=== PATIENT | male | born 1990 | race Two or more races ===

== ENCOUNTER 2021-04-03 13:20 | Outpatient (CLI) | payer MEDICARE, OTHER ==
[2021-04-03] MEDS ORDERED: BACI/NEOM/POLY B OINT PKT 1 UDPKT PACKET ONE (13:50)
== END 2021-04-03 23:59 | disposition home or self-care (01) ==
LOC: WOU 13:20
PROVIDERS: ATTEND Surgery
DX: T81.31XA Disruption of external operation (surgical) wound, not elsewhere classified, initial encounter (principal); T86.821 Skin graft (allograft) (autograft) failure; G82.20 Paraplegia, unspecified; M62.50 Muscle wasting and atrophy, not elsewhere classified, unspecified site
CPT/HCPCS: 11043

== ENCOUNTER 2022-02-19 11:30 | Outpatient (CLI) | payer MEDICARE, OTHER ==
[2022-02-19] MEDS ORDERED: COLLAGENASE 5 GM TUBE UD TP ONE (11:47)
== END 2022-02-19 23:59 | disposition home or self-care (01) ==
LOC: WOU 11:30
PROVIDERS: ATTEND Surgery
DX: L89.314 Pressure ulcer of right buttock, stage 4 (principal); L89.224 Pressure ulcer of left hip, stage 4; G82.20 Paraplegia, unspecified; M62.50 Muscle wasting and atrophy, not elsewhere classified, unspecified site; E46 Unspecified protein-calorie malnutrition; Z68.1 Body mass index [BMI] 19.9 or less, adult; F41.9 Anxiety disorder, unspecified; Z96.82 Presence of neurostimulator
CPT/HCPCS: 11043

== ENCOUNTER 2022-02-23 11:23 | Outpatient (CLI) | payer MEDICARE, OTHER ==
[2022-02-23] MEDS ORDERED: COLLAGENASE 5 GM TUBE UD TP ONE (11:26)
== END 2022-02-23 23:59 | disposition home or self-care (01) ==
LOC: WOU 11:23
PROVIDERS: ATTEND Surgery
DX: L89.314 Pressure ulcer of right buttock, stage 4 (principal); L89.224 Pressure ulcer of left hip, stage 4; G82.20 Paraplegia, unspecified; M62.50 Muscle wasting and atrophy, not elsewhere classified, unspecified site; E46 Unspecified protein-calorie malnutrition; Z68.1 Body mass index [BMI] 19.9 or less, adult; F41.9 Anxiety disorder, unspecified; Z96.82 Presence of neurostimulator
CPT/HCPCS: G0463

== ENCOUNTER 2022-02-26 13:00 | Outpatient (CLI) | payer MEDICARE, OTHER ==
[2022-02-26] MEDS ORDERED: LIDOCAINE 2%-EPI 1:100,000 30 ML VIAL ONE (13:17)
== END 2022-02-26 23:59 | disposition home or self-care (01) ==
LOC: WOU 13:00
PROVIDERS: ATTEND Surgery
DX: L89.314 Pressure ulcer of right buttock, stage 4 (principal); L89.224 Pressure ulcer of left hip, stage 4; G82.20 Paraplegia, unspecified; M62.50 Muscle wasting and atrophy, not elsewhere classified, unspecified site; F41.9 Anxiety disorder, unspecified; E46 Unspecified protein-calorie malnutrition; Z68.1 Body mass index [BMI] 19.9 or less, adult; Z96.82 Presence of neurostimulator
CPT/HCPCS: 11043; 11046; J3490

== ENCOUNTER 2022-04-02 13:25 | Outpatient (CLI) | payer MEDICARE, OTHER ==
[2022-04-02] MEDS ORDERED: COLLAGENASE 5 GM TUBE UD TP ONE (13:43)
== END 2022-04-02 23:59 | disposition home or self-care (01) ==
LOC: WOU 13:25
PROVIDERS: ATTEND Surgery
DX: L89.224 Pressure ulcer of left hip, stage 4 (principal); L89.314 Pressure ulcer of right buttock, stage 4; M62.50 Muscle wasting and atrophy, not elsewhere classified, unspecified site; G82.20 Paraplegia, unspecified
CPT/HCPCS: 11043

== ENCOUNTER 2022-04-09 13:08 | Outpatient (CLI) | payer MEDICARE, OTHER ==
[2022-04-09] MEDS ORDERED: COLLAGENASE 5 GM TUBE UD TP ONE (13:22)
== END 2022-04-09 23:59 | disposition home or self-care (01) ==
LOC: WOU 13:08
PROVIDERS: ATTEND Surgery
DX: L89.314 Pressure ulcer of right buttock, stage 4 (principal); L89.224 Pressure ulcer of left hip, stage 4; G82.20 Paraplegia, unspecified; M62.50 Muscle wasting and atrophy, not elsewhere classified, unspecified site; Z87.891 Personal history of nicotine dependence
CPT/HCPCS: 11043

== ENCOUNTER 2022-04-23 14:24 | Outpatient (CLI) | payer MEDICARE, OTHER ==
[~2022-04-23 14:24] MED LIST: COLLAGENASE 5 GM TUBE UD TP ONE
== END 2022-04-23 23:59 | disposition home or self-care (01) ==
LOC: WOU 14:24
PROVIDERS: ATTEND Surgery
DX: L89.314 Pressure ulcer of right buttock, stage 4 (principal); L89.224 Pressure ulcer of left hip, stage 4; G82.20 Paraplegia, unspecified; M62.50 Muscle wasting and atrophy, not elsewhere classified, unspecified site; E46 Unspecified protein-calorie malnutrition; Z68.1 Body mass index [BMI] 19.9 or less, adult
CPT/HCPCS: 11043

== ENCOUNTER 2022-05-07 13:47 | Outpatient (CLI) | payer MEDICARE, OTHER ==
[2022-05-07] MEDS ORDERED: DAKINS HALF STRENGTH (0.25%) 480 ML BOTTLE ONE (14:05)
[2022-05-07] MEDS ORDERED: COLLAGENASE 5 GM TUBE UD TP ONE (14:05)
== END 2022-05-07 23:59 | disposition home or self-care (01) ==
LOC: WOU 13:47
PROVIDERS: ATTEND Surgery
DX: L89.314 Pressure ulcer of right buttock, stage 4 (principal); L89.224 Pressure ulcer of left hip, stage 4; G82.20 Paraplegia, unspecified; M62.50 Muscle wasting and atrophy, not elsewhere classified, unspecified site
CPT/HCPCS: 11043

== ENCOUNTER 2024-09-20 11:45 | Outpatient (CLI) | payer MEDICARE, OTHER | END 2024-09-20 23:59 | disposition home or self-care (01) | LOC: WOU 11:45 | PROVIDERS: ATTEND Specialist | DX: L89.224 Pressure ulcer of left hip, stage 4 (principal); L89.214 Pressure ulcer of right hip, stage 4; G82.20 Paraplegia, unspecified; M62.50 Muscle wasting and atrophy, not elsewhere classified, unspecified site; M86.652 Other chronic osteomyelitis, left thigh; M86.651 Other chronic osteomyelitis, right thigh | CPT/HCPCS: 87075; G0463 ==